=== PATIENT | male | born 1945 | race Caucasian/White ===

== ENCOUNTER 2019-10-02 11:05 | Outpatient (RCR) | payer MEDICARE, SELFPAY ==
[2019-09-28 12:51] LABS: INR 4.6; Prothrombin Time 47.5 Seconds (9.64-11.0)
[2019-10-02 14:26] LABS: INR 2.4; Prothrombin Time 25.4 Seconds (9.64-11.0)
== END 2019-10-25 23:59 | disposition home or self-care (01) ==
LOC: CHSLAB 11:05
PROVIDERS: PCP Nurse Practitioner Family; Visit Provider Nurse Practitioner Family
DX: I48.91 Unspecified atrial fibrillation (principal)
CPT/HCPCS: 36415; 85610